=== PATIENT | female | born 1990 | race Caucasian/White ===

== ENCOUNTER → 2018-06-14 | Outpatient (CLI) | payer BC ==
[~2018-06-14] MED LIST: IOPAMIDOL (ISOVUE-300) 100 ML BTL ONE
== END ==
LOC: FIMAGING 10:48
PROVIDERS: ATTEND Otolaryngology
DX: J30.9 Allergic rhinitis, unspecified (principal); J32.0 Chronic maxillary sinusitis
CPT/HCPCS: Q9967

== ENCOUNTER → 2018-09-07 | Outpatient (CLI) | payer BC | LOC: BMCIMAGING 11:59 | PROVIDERS: ATTEND Family Medicine | DX: R06.2 Wheezing (principal) ==